=== PATIENT | male | born 1985 | race Caucasian/White ===

== ENCOUNTER 2016-07-09 17:27 | Emergency (ER) | payer MEDICAID, OTHER ==
[2016-07-09 17:43] VITALS: BP 140/82
--- NOTE | 2016-07-09 18:21 | UC ---
Throat Pain/Nasal Eliel HPI - HPI Summary HPI Summary: 31 male presents with worry that he may have strep due to both his parents having strep. States for the past 2-3 days he has been spitting up white hard chunks the size of a piece of gum and wanted to make sure it was not from strep. Denies fever/chills, sore throat, congestion. He just recently go over a sinus infection and still feels as though he is getting over it. Admits to some ear "popping" of his right ear. States he feels fine he just wanted to make sure and be checked for strep. States he has problems with his sinuses. - History of Current Complaint Chief Complaint: UCGeneralIllness Stated Complaint: SORE THROAT Time Seen by Provider: 07/09/16 18:09 Hx Obtained From: Patient Onset/Duration: Lasting Days Associated Signs & Symptoms: Positive: Negative - Allergies/Home Medications Allergies/Adverse Reactions: Allergies Allergy/AdvReac Type Severity Reaction Status Date / Time No Known Allergies Allergy Verified 07/09/16 17:43 Home Medications: Home Medications Pseudoephedrine-Ibuprofen [Advil Cold & Sinus] 2 cap PO DAILY 07/09/16 [History Confirmed 07/09/16] PMH/Surg Hx/FS Hx/Imm Hx Endocrine History Of: Denies: Diabetes Cardiovascular History Of: Denies: Hypertension - Surgical History Surgical History: Yes Surgery Procedure, Year, and Place: tonsillectomy - Family History Known Family History: Positive: None - Social History Alcohol Use: Daily Alcohol Amount: 2 beers/day Substance Use Type: None Smoking Status (MU): Heavy Every Day Tobacco Smoker Type: Cigarettes Amount Used/How Often: 1/2 - 1 PPD Length of Time of Smoking/Using Tobacco: 15 yrs Household Exposure Type: Cigarettes - Immunization History Most Recent Influenza Vaccination: none Review of Systems Constitutional: Negative Skin: Negative Eyes: Negative ENT: Other - spitting up white chunks Respiratory: Negative Cardiovascular: Negative Gastrointestinal: Negative All Other Systems Reviewed And Are Negative: Yes Physical Exam Triage Information Reviewed: Yes Appearance: Well-Appearing, No Pain Distress, Well-Nourished Vital Signs: Initial Vital Signs Temp 98.6 F 07/09/16 17:37 Pulse 83 07/09/16 17:37 Resp 17 07/09/16 17:37 BP 140/82 07/09/16 17:37 Pulse Ox 99 07/09/16 17:37 Vital Signs Reviewed: Yes Eyes: Positive: Conjunctiva Clear ENT: Positive: Normal ENT inspection, Hearing grossly normal, Pharynx normal, TMs normal - fluid behind right ear TM. Negative: Pharyngeal erythema, Nasal congestion, TM bulging, Tonsillar exudate Dental: Negative: Percussion Tenderness @ Neck: Positive: Supple, Nontender Respiratory: Positive: Chest non-tender, Lungs clear, Normal breath sounds, No respiratory distress Cardiovascular: Positive: RRR, No Murmur, Pulses Normal Psychological Exam: Normal Skin Exam: Normal Throat Pain/Nasal Course/Dx - Course Course Of Treatment: strep culture obtained and negative. suggested to take a picture of white hard chunks that he is spitting up it happens again. follow- up. try taking antihistamine to help with fluid build up from previous episode of sinusitis. - Differential Dx/Diagnosis Differential Diagnosis/HQI/PQRI: Otitis Media, Pharyngitis, Sinusitis, URI Provider Diagnoses: eustachian tube dysfunction Discharge - Discharge Plan Condition: Stable Disposition: HOME Patient Education Materials: Eustachian Tube Dysfunction (GEN) Referrals: Edu Jarrell [Primary Care Provider] - Additional Instructions: Try taking OTC anti-histamine such as Zyrtec to help relieve your symptoms and left over fluid from sinus infection. If you continue having symptoms after the next 7-10 days please make an appointment with your primary care provider for further evaluation.
== END 2016-07-09 18:29 | disposition home or self-care (01) ==
LOC: UCCORT 17:27
DX: H69.91 Unspecified Eustachian tube disorder, right ear (principal); F10.99 Alcohol use, unspecified with unspecified alcohol-induced disorder; F17.210 Nicotine dependence, cigarettes, uncomplicated
CPT/HCPCS: 87651; 99211; G0463

== ENCOUNTER 2018-11-10 15:42 | Emergency (ER) | payer OTHER | END 2018-11-10 15:50 | disposition left against medical advice (07) | LOC: UCCORT 15:42 | DX: J34.89 Other specified disorders of nose and nasal sinuses (principal); R05 Cough; Z53.21 Procedure and treatment not carried out due to patient leaving prior to being seen by health care provider ==